=== PATIENT | female | born 1985 | race Two or more races ===

== ENCOUNTER → 2018-03-11 | Outpatient (CLI) | payer SELFPAY | END | disposition home or self-care (01) | LOC: LAB 14:13 | DX: N91.1 Secondary amenorrhea (principal) | CPT/HCPCS: 36415; 84702 ==

== ENCOUNTER → 2018-03-17 | Outpatient (CLI) | payer SELFPAY | END | disposition home or self-care (01) | LOC: LAB 14:01 | DX: N91.2 Amenorrhea, unspecified (principal) | CPT/HCPCS: 36415; 84702 ==

== ENCOUNTER → 2018-03-28 | Day surgery (SDC) | payer SELFPAY ==
[2018-03-28] MEDS: METHOTREXATE SODIUM 50 MG/2 ML VIAL IM (17:00)
== END | disposition home or self-care (01) ==
LOC: OPS 15:28
DX: O00.90 Unspecified ectopic pregnancy without intrauterine pregnancy (principal); O26.899 Other specified pregnancy related conditions, unspecified trimester; N91.1 Secondary amenorrhea; Z3A.00 Weeks of gestation of pregnancy not specified
CPT/HCPCS: 96372

== ENCOUNTER → 2018-03-28 | Outpatient (CLI) | payer SELFPAY | END | disposition home or self-care (01) | LOC: LAB 11:27 | DX: N93.9 Abnormal uterine and vaginal bleeding, unspecified (principal) | CPT/HCPCS: 36415; 84702 ==

== ENCOUNTER → 2018-04-11 | Outpatient (CLI) | payer SELFPAY | END | disposition home or self-care (01) | LOC: LAB 10:28 | DX: N91.2 Amenorrhea, unspecified (principal) | CPT/HCPCS: 36415; 84702 ==

== ENCOUNTER → 2019-12-18 | Outpatient (CLI) | payer MEDICAID, OTHER ==
[2018-03-28 16:22] VITALS: BP 130/84
--- NOTE | 2019-12-18 16:23 | RAD ---
Examination: 1. Digital bilateral diagnostic mammogram. 2. Left targeted breast ultrasound. INDICATION: 34-year-old woman with a palpable lump in the upper outer left breast more apparent on self exam since initial detection in May 2019. She does report having had liposuction in the left upper extremity and axilla in January 2019. 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 No family history of breast cancer. She was told from her most recent ultrasound examination that she had cysts but she remains concerned about the area of palpable concern. COMPARISON: Bilateral breast ultrasound of August 06, 2014 and report from left breast ultrasound of July 06, 2019. TECHNIQUE: Bilateral baseline diagnostic mammogram was performed with 2-D and 3-D technique and reviewed with computer-aided detection using a triangular marker over the area of patient reported palpable concern. Targeted ultrasound of the area of palpable concern was next pursued. FINDINGS: Bilateral mammogram: Scattered fibroglandular densities. The right mammogram is negative. The left mammogram shows an oval reniform mass with central lucency, consistent with a mammographically benign intramammary lymph node. This correlates with the area of palpable concern as indicated with a triangle marker at the skin surface. No dominant mass, architectural distortion or suspicious microcalcifications are otherwise noted. The skin is normal in thickness and there is no nipple retraction. Left breast ultrasound: Targeted ultrasound of the patient's reported area of palpable concern revealed a parallel orientation 8 mm intramammary lymph node at the 2:30 o'clock position 6 cm from the nipple that correlates with the mammographic finding and with the area of palpable concern as reported by the patient. Sonographic survey of the left axilla revealed no adenopathy. IMPRESSION: 1. Benign findings in the left breast compatible with an intramammary lymph node, corresponding with the area of palpable concern. There are no imaging features that would compel a biopsy recommendation currently. However, decision for biopsy should be clinical and if in the opinion of the patient's referring provider, the palpable finding is clinically suspicious, it should still be considered for biopsy, either by core needle biopsy or surgical excision. 2. In the absence of any clinically suspicious findings, age-appropriate routine mammographic screening starting at age 40 in average risk women is recommended. Discussed with the patient. BI-RADS Category 2: Benign. Patient entered into a reminder system with target due date for next mammogram.
== END ==
LOC: MAMMO 09:19
PROVIDERS: ATTEND Obstetrics & Gynecology
DX: N63.20 Unspecified lump in the left breast, unspecified quadrant (principal); R92.2 Inconclusive mammogram
CPT/HCPCS: 76641; 77066; G0279; 77062

== ENCOUNTER → 2020-11-13 | Outpatient (CLI) | payer OTHER ==
[2020-08-30 13:12] VITALS: BP 131/83
--- NOTE | 2020-11-14 12:59 | RAD ---
Examination: 1. Digital bilateral diagnostic mammograms. 2. Limited left breast ultrasound. INDICATION: 35-year-old woman with a persistent palpable area of concern in the upper outer left [address], showing new symptoms of itching. This has been present for the past year. COMPARISON: Bilateral mammogram and limited left breast ultrasound of 12/18/2019. TECHNIQUE: A BB marker was placed over the patient's reported area of palpable concern. Bilateral CC and MLO views were obtained with 2-D technique and reviewed with computer-aided detection. Therejuanae r, targeted ultrasound of the upper outer left breast in the patient's reported area of palpable conc gildardo was performed. FINDINGS: Scattered fibroglandular densities. The right mammogram is negative. The left mammogram shows interval decrease in size of the intramammary lymph node in the area of palp able concern mammographically but interval development of an adjacent oval focal asymmetry 1.2 cm curly g by 9 mm wide. This focal asymmetry needs additional imaging with targeted left breast ultrasound. Targeted ultrasound of the posterior upper outer left breast was performed at this visit and identifi ed a parallel orientation oval hypoechoic 1.5 cm mass at the left 2:30 o'clock position 6 cm from the nipple that resembles a cluster of cysts. This likely correlates with the area of palpable concern. There is no internal vascularity. However given that it is a developing mass in the area of persisten t symptomatic concern, it is considered mildly suspicious and recommended for ultrasound-guided core needle biopsy. IMPRESSION: Suspicious developing mass in the posterior upper outer quadrant left breast, adjacent to a now decre ased in size intramammary lymph node. BI-RADS Category 4 Findings suspicious for malignancy. Recommend ultrasound-guided left breast core needle biopsy. Discussed with patient. Also discussed with Dr. Parks by telephone at 12:53 PM on 11/14/2020 Electronically signed by: Diana Velarde MD (11/14/2020 12:57 PM) [id number]
== END ==
LOC: MAMMO 12:34
PROVIDERS: ATTEND Obstetrics & Gynecology
DX: R92.2 Inconclusive mammogram (principal); N63.21 Unspecified lump in the left breast, upper outer quadrant
CPT/HCPCS: 76641; 77066; G0279; 77062

== ENCOUNTER → 2020-11-27 | Outpatient (CLI) | payer OTHER ==
[2020-08-30 13:12] VITALS: BP 131/83
--- NOTE | 2020-11-27 09:40 | RAD ---
EXAM: Left breast sonogram. HISTORY: 35-year-old female presents for evaluation and possible biopsy of a lesion within the left b reast demonstrated on a mammogram and sonogram performed 11/13/2020. TECHNIQUE: Sonographic imaging of the left breast targeted to sites of concern and mammographic nodul arity was performed. COMPARISON: Sonograms dated 11/13/2020, 12/18/2019 08/06/2014. Mammograms dated 11/13/2020 and 12/18/2019 . FINDINGS: There is a 5 mm lymph node with fatty hilum and thin cortex at the 2:30 position 6 cm from the nipple, corresponding with the site of reported palpable concern. This lymph node demonstrates be nign morphology. There has been interval decrease in the lymph node size and cortical thickness julius red to prior sonograms, consistent with resolution of reactive changes. There is a cluster of cysts or benign fibrocystic lesion measuring 1.6 cm x 1.2 cm x 0.5 cm at the 1: 30 position 8 cm from the nipple. This is best characterized with real-time imaging, as demonstrated on cine clip images. This lesion demonstrates no suspicious solid component, no internal blood flow o r posterior shadowing. This corresponds with a lobulated circumscribed lesion demonstrated mammograph ically. IMPRESSION: 1. 1.6 x 1.2 x 0.5 cm cluster of cysts or benign fibrocystic lesion at the 1:30 position 8 cm from th e nipple. This demonstrates no clear suspicious sonographic features for biopsy. Precautionary short- term follow-up with a left breast diagnostic mammogram and sonogram in 6 months is recommended to con firm stability, given interval change in this location compared to the mammogram and sonogram perform ed 12/18/2019. 2. 5 mm intramammary lymph node with benign morphology at the 2:30 position 6 cm from the nipple. 3. BI-RADS Category 3: Probably benign finding(s). Short term follow up with a diagnostic left breast mammogram and sonogram in 6 months is recommended. Electronically signed by: Mary Lopez MD (11/27/2020 9:38 AM) [id number]
== END ==
LOC: US 08:09
PROVIDERS: ATTEND Obstetrics & Gynecology
DX: N63.20 Unspecified lump in the left breast, unspecified quadrant (principal)
CPT/HCPCS: 76641

== ENCOUNTER → 2021-05-01 | Outpatient (CLI) | payer OTHER ==
[2020-08-30 13:12] VITALS: BP 131/83
--- NOTE | 2021-05-01 10:25 | RAD ---
EXAM: 1. Unilateral digital diagnostic mammography, left. 2. Left breast ultrasound. HISTORY: Six-month follow-up left breast lesions. TECHNIQUE: Left full field digital images were obtained in CC and MLO projections with tomosynthesis. Computer-aided detection was applied. Sonography of the left breast was also performed. COMPARISON: 11/13/2020, 11/27/2020. 12/18/2019. COMPOSITION: B. There are scattered areas of fibroglandular density. FINDINGS: The density of prior concern laterally and superiorly on the left has resolved to its forme r appearance. On today's sonography, the collection of small cysts at the 1:30 position, 8 cm from th e nipple has resolved. A benign-appearing intramammary lymph node at the 2:30 position 6 cm from the nipple is stable. There are no pathologically enlarged left axillary lymph nodes. Mammographically, a parenchymal density at the 6:00 position is stable. There are no suspicious masses, microcalcificati ons or architectural distortion. BI-RADS CATEGORY 2: Benign. RECOMMENDATION: 1. Resume bilateral screening mammography in October 2021. If mammography demonstrates dense breast tissue (heterogenously dense or extremely dense, category C or D), which could hide abnormalities, and if other risk factors for breast cancer have been identifi ed, supplemental screening tests that may be suggested by the ordering physician may be of benefit. D ense breast tissue, in and of itself, is a relatively common condition. Therefore, this information i s not provided to cause undue concern, but rather to raise awareness and to promote discussion with t he referring physician regarding the presence of other risk factors, in addition to dense breast tiss ue. The results of this mammography examination is provided to the patient and referring physician. T he patient should contact their referring physician if any questions or concerns exist regarding this report. PQRS compliance statement - Patient information was entered into a reminder system with a target due date for the next mammogram. "Our facility is accredited by the [employer] Mammography [employer]." Electronically signed by: Rose Marie Weber MD (05/01/2021 10:23 AM) [id number]
== END ==
LOC: MAMMO 09:39
PROVIDERS: ATTEND Obstetrics & Gynecology
DX: N60.02 Solitary cyst of left breast (principal); N64.89 Other specified disorders of breast
CPT/HCPCS: 76641; 77065; G0279; 77061

== ENCOUNTER → 2021-11-13 | Outpatient (CLI) | payer OTHER ==
[2021-07-10 09:26] VITALS: BP 144/84
--- NOTE | 2021-11-13 14:01 | RAD ---
EXAMINATION: MG 2D BILAT SCREENING CLINICAL HISTORY: Screening mammogram TECHNIQUE: Digital craniocaudal and mediolateral oblique views of the bilateral breasts obtained. COMPARISON: 05/01/2021, 11/13/2020, 12/18/2019 BREAST COMPOSITION: There are scattered areas of fibroglandular density. FINDINGS: No evidence of suspicious mass, calcifications, or areas of architectural distortion. IMPRESSION: No mammographic evidence of malignancy. BI-RADS ASSESSMENT: Category 1: Negative RECOMMENDATION: Return for routine bilateral screening mammogram in one year. PQRS compliance statement - Patient information was entered into a reminder system with a target due date for the next mammogram. "Our facility is accredited by the [employer] Mammography [employer]." Electronically signed by: Douglas Bolden DO (11/13/2021 1:59 PM) [id number]
== END ==
LOC: MAMMO 07:45
PROVIDERS: ATTEND Obstetrics & Gynecology
DX: Z12.31 Encounter for screening mammogram for malignant neoplasm of breast (principal)
CPT/HCPCS: 77067